=== PATIENT | male | born 1950 | race Native Hawaiian/Other Pacific Islander ===

== ENCOUNTER 2018-10-13 09:27 | Outpatient (CLI) | payer OTHER ==
[2018-10-13] MEDS ORDERED: PROAIR HFA INH (09:55)
[2018-10-13] MEDS ORDERED: FLUTMIS14 INH (09:55)
[2018-10-13] MEDS ORDERED: AMLODIPINE BESYLATE PO (09:56)
[2018-10-13] MEDS ORDERED: CARV6.25 PO (09:56)
[2018-10-13] MEDS ORDERED: JANTOVEN7.5 MG PO (09:57)
[2018-10-13] MEDS ORDERED: JANTOVEN10 MG PO (09:58)
[2018-10-13] MEDS ORDERED: LISI10TA11 PO (09:58)
[2018-10-13] MEDS ORDERED: ASPIRIN LOW81 MG PO (09:59)
[2018-10-13] MEDS ORDERED: LIPITOR80 MG PO (09:59)
[2018-10-13] MEDS ORDERED: GLUCOSAMINE CHONDRO1 PO (10:00)
[2018-10-13] MEDS ORDERED: ALLEGRA ALRG180 M1 PO (10:00)
[2018-10-13] MEDS ORDERED: MONTELUKAST SOD10 MG PO (10:00)
[2018-10-13] MEDS ORDERED: LEVE500T5 PO (10:01)
[2018-10-13] MEDS ORDERED: CO Q-10 PO (10:01)
== END 2018-10-13 09:38 | disposition short-term general hospital (02) ==
LOC: AMB 09:27
DX: G40.89 Other seizures (principal)
CPT/HCPCS: A0425; A0427

== ENCOUNTER 2018-10-13 09:48 | Emergency (ER) | payer OTHER ==
[~2018-10-13] VITALS: Ht 167.6 cm; Wt 70.3 kg
[2018-10-13] MEDS ORDERED: FLUTMIS14 INH (09:55)
[2018-10-13] MEDS ORDERED: PROAIR HFA INH (09:55)
[2018-10-13] MEDS ORDERED: AMLODIPINE BESYLATE PO (09:56)
[2018-10-13] MEDS ORDERED: CARV6.25 PO (09:56)
[2018-10-13] MEDS ORDERED: JANTOVEN7.5 MG PO (09:57)
[2018-10-13] MEDS ORDERED: LISI10TA11 PO (09:58)
[2018-10-13] MEDS ORDERED: JANTOVEN10 MG PO (09:58)
[2018-10-13] MEDS ORDERED: LIPITOR80 MG PO (09:59)
[2018-10-13] MEDS ORDERED: ASPIRIN LOW81 MG PO (09:59)
[2018-10-13] MEDS ORDERED: GLUCOSAMINE CHONDRO1 PO (10:00)
[2018-10-13] MEDS ORDERED: ALLEGRA ALRG180 M1 PO (10:00)
[2018-10-13] MEDS ORDERED: MONTELUKAST SOD10 MG PO (10:00)
[2018-10-13] MEDS ORDERED: LEVE500T5 PO (10:01)
[2018-10-13] MEDS ORDERED: CO Q-10 PO (10:01)
[2018-10-13 11:35] LABS: PLATELET COUNT 219 K/uL (142-355)
[2018-10-13 12:18] LABS: POTASSIUM 3.9 mmol/L (3.6-5.2)
[2018-10-13 15:19] VITALS: BP 120/55; TEMP 99.5
== END 2018-10-13 15:36 | disposition home or self-care (01) ==
LOC: EDBD 09:48 → ED 09:48
PROVIDERS: Family Medicine
DX: R56.9 Unspecified convulsions (principal)
CPT/HCPCS: 80053; 80307; 81000; 85027; 96365; 99284; J1953